=== PATIENT | female | born 2000 | race Caucasian/White ===

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

== ENCOUNTER → 2019-04-18 | Outpatient (CLI) | payer OTHER ==
[~2019-04-18] MED LIST changes: +ACET-704 PO; +IBUP-1390 PO; -IBUP200C PO
--- NOTE | 2019-04-18 11:12 | RAD ---
Left knee, 3 views, 04/18/2019: HISTORY: Knee pain No fracture or dislocation is identified. No significant arthritic change is seen. No significant joint effusion is evident. IMPRESSION: No significant left knee abnormality is detected Electronically signed by: Guerrero Logan MD (04/18/2019 11:09 AM) [facility]
== END | disposition home or self-care (01) ==
LOC: PMG 10:44
PROVIDERS: ATTEND Registered Nurse
DX: M25.562 Pain in left knee (principal)
CPT/HCPCS: 73562

== ENCOUNTER 2021-11-17 19:44 | Emergency (ER) | payer BC, OTHER ==
--- NOTE | 2021-11-17 20:40 | PHYS DOC ---
Past History Past Medical History: Asthma, Bipolar Past Surgical History: No Surgical History Smoking: Non-smoker Alcohol Use: None Drug Use: None General Adult EDM: Chief Complaint: Insomnia HPI: HPI: ". I have not slept more 2 hrs. a day the last three days.. " ... " Nothing is working I took 2 Ambien.... and I only fall asleep two hours.. " " I am Bipolar.. and I am getting manic.. " Pt. " Her father was Bipolar. and a rapid cycle.. " .." We are going to the [facility] service on Sunday... they are to get her in to try some different meds.. " Patient is a 21 year old female who presents with above hx and complaints of insomnia 72 hrs. Has taken her Bipolar meds as directed but minimal improvement for her manic phase. No recent travel. No specific ill contacts. Denies any u se of excessive caffeine or stimulants. No history of depression. No suicidal or homicidal ideation.. Patient is with her mother who is going to give transportation and make sure she gets to [facility] on Sunday. Review of Systems: Review of Systems: Constitutional: Denies fever or chills Eyes: Denies change in visual acuity HENT: Denies nasal congestion or sore throat Respiratory: Denies cough or shortness of breath Cardiovascular: Denies chest pain or edema GI: Denies abdominal pain, nausea, vomiting, bloody stools or diarrhea : Denies dysuria Musculoskeletal: Denies back pain or joint pain Integument: Denies rash Neurologic: Denies headache, focal weakness or sensory changes Endocrine: Denies polyuria or polydipsia Lymphatic: Denies swollen glands Psychiatric: Complains of insomnia and anxiety Family History: Family History: Father has bipolar disorder Current Medications: Current Meds: See nursing for home meds Allergies: Allergies: Allergies Coded Allergies Type Severity Reaction Last Updated Verified No Known Drug Allergies 03/19/14 No Physical Exam: PE: Constitutional: Moderate acute emotional distress, non-toxic appearance. [] HENT: Normocephalic, atraumatic, bilateral external ears normal, oropharynx moist, no oral exudates, nose normal. [] Eyes: PERRLA, EOMI, conjunctiva normal, no discharge. [] Neck: Normal range of motion, no tenderness, supple, no stridor. [] Cardiovascular:Heart rate regular rhythm, no murmur [] Lungs & Thorax: Bilateral breath sounds equal at apex auscultation [] Abdomen: Bowel sounds normal, soft, no tenderness, no masses, no pulsatile masses. [] Skin: Warm, dry, no erythema, no rash. Acne Back: No tenderness, no CVA tenderness. [] Extremities: No tenderness, no cyanosis, no clubbing, ROM intact, no edema. [] Neurologic: Alert and oriented X 3, normal motor function, normal sensory function, no focal deficits noted. [] Psychologic: Affect anxious judgement normal, mood normal. [] EKG: EKG: [] Radiology/Procedures: Radiology/Procedures: [] Heart Score: C/O Chest Pain: N/A Risk Factors: Risk Factors: DM, Current or recent (<one month) smoker, HTN, HLP, family history of CAD, obesity. Risk Scores: Score 0 - 3: 2.5% MACE over next 6 weeks - Discharge Home Score 4 - 6: 20.3% MACE over next 6 weeks - Admit for Clinical Observation Score 7 - 10: 72.7% MACE over next 6 weeks - Early Invasive Strategies Course & Med Decision Making: Course & Med Decision Making Pertinent Labs and Imaging studies reviewed. (See chart for details) Patient keep follow-up with [facility]. Impression: 1. Bipolar Disorder- Manic 2. Insomnia 3. Anxiety [] Dragon Disclaimer: Dragteodoro Disclaimer: This electronic medical record was generated, in whole or in part, using a voice recognition dictation system. Departure Departure: Referrals: MING IBRAHIM MD (PCP) Rashel Disclaimer This chart was dictated in whole or in part using Voice Recognition software in a busy, high-work load, and often noisy Emergency Department environment. It may contain unintended and wholly unrecognized errors or omissions. VIJAYA DELEON MD Nov 17, 2021 20:40
[2021-11-17 21:44] LABS: BARBITURATES NEG (NEG); BENZODIAZEPINES NEG (NEG); CANNABINOIDS NEG (NEG); COCAINE NEG (NEG); METHADONE NEG (NEG); OPIATES NEG (NEG); PHENCYCLIDINE NEG (NEG)
[2021-11-17 21:46] LABS: AMPHETAMINE/METHAMPHETAMINE NEG (NEG); BILIRUBIN,URINE NEG (NEG); CLARITY,URINE CLEAR; COLOR,URINE YELLOW; GLUCOSE,URINE NEG (NEG)
[2021-11-17 21:47] LABS: BACTERIA,URINE MOD /HPF (0-FEW); NITRITE,URINE NEG (NEG); SQUAMOUS EPITHELIAL CELL,UR MANY /LPF; UROBILINOGEN,URINE 0.2 mg/dL (0.2 mg/dL)
[2021-11-17] MEDS ORDERED: DOXEPIN HCL 25 MG CAPSULE PO ONE (22:15)
[2021-11-17] MEDS ORDERED: LORazepam 1 MG TABLET PO ONE (22:15)
== END 2021-11-17 22:15 | disposition home or self-care (01) ==
LOC: ER 19:44
DX: F31.9 Bipolar disorder, unspecified (principal); G47.00 Insomnia, unspecified; F41.9 Anxiety disorder, unspecified; J45.909 Unspecified asthma, uncomplicated
CPT/HCPCS: 36415; 80307; 81001; 81025; 87086; 99283

== ENCOUNTER 2022-01-22 10:02 | Emergency (ER) | payer BC ==
[~2022-01-22] VITALS: Ht 170.2 cm; Wt 119.7 kg
[2022-01-22 10:02] VITALS: BP 124/78
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
== END 2022-01-22 12:00 | disposition short-term general hospital (02) ==
LOC: ER 10:02 → EEVIPCON 10:02 → ER 12:00
DX: T76.21XA Adult sexual abuse, suspected, initial encounter (principal); J45.909 Unspecified asthma, uncomplicated; F31.9 Bipolar disorder, unspecified
CPT/HCPCS: 99285

== ENCOUNTER 2022-03-19 18:00 | Emergency (ER) | payer BC ==
[~2022-03-19] VITALS: Ht 170.2 cm; Wt 118.5 kg
[2022-03-19 18:57] VITALS: BP 138/77
--- NOTE | 2022-03-19 19:21 | EKG ---
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
[2022-03-19] MEDS ORDERED: CONTRAST GIVEN. MC PRN (19:45)
--- NOTE | 2022-03-19 19:45 | PHYS DOC ---
Past History Past Medical History: Asthma, Bipolar, Depression (EDGAR CHAIREZ APRN) Past Surgical History: No Surgical History (EDGAR CHAIREZ APRN) Smoking: Non-smoker Alcohol Use: None Drug Use: None (EDGAR CHAIREZ APRN) General Adult EDM: Chief Complaint: SYNCOPE HPI: HPI: Patient is a 21-year-old female who presents with syncopal episode at work. Patient states that she was not feeling well this morning. Patient arrived at work and states that she was feeling weird. 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 "Then I fell on the floor". Patient is unsure of how long she was on the floor before coworkers found her and called EMS. Patient is drowsy but oriented. Reporting numbness and tingling to the right side of her face, bilateral leg weakness, hand numbness. Patient states that she started control 2 months ago. No signs of trauma. Patient has a history of bipolar disorder, anxiety, depression. (EDGAR CHAIREZ APRN) Review of Systems: Review of Systems: ROS At least 10 ROS systems have been reviewed and are negative except as documented in the HPI. General: Negative except as outlined in HPI above. Skin: Negative except as outlined in HPI above. HEENT: Negative except as outlined in HPI above. Neck: Negative except as outlined in HPI above. Respiratory: Negative except as outlined in HPI above.. Cardiovascular: Negative except as outlined in HPI above. Abdomen: Negative except as outlined in HPI above. : Negative except as outlined in HPI above. Back/MSK: Negative except as outlined in HPI above. Neuro: Negative except as outlined in HPI above. Psych: Negative except as outlined in HPI above. (EDGAR CHAIREZ APRN) Current Medications: Current Meds: Current Medications Medications (Trade) Dose Ordered Sig/Cristi Start Time Stop Time Status Last Admin Dose Admin Iohexol (Omnipaque 350 Mg/ml) 100 ml 1X ONCE 03/19/22 19:30 03/19/22 19:31 UNV Sodium Chloride 1,000 ml @ 1,000 mls/hr 1X ONCE 03/19/22 19:00 03/19/22 19:59 (EDGAR CHAIREZ APRN) Allergies: Allergies: Allergies Coded Allergies Type Severity Reaction Last Updated Verified latex Allergy Intermediate 03/19/22 Yes (EDGAR CHAIREZ APRN) Physical Exam: PE: Constitutional: Well developed, well nourished, tearful HENT: bilateral external ears normal, oropharynx moist, no oral exudates, nose normal. [] Eyes: PERRLA, EOMI, conjunctiva normal, no discharge. [] Neck: Normal range of motion, no tenderness, supple, no stridor. [] Cardiovascular:Heart rate regular rhythm, no murmur [] Lungs & Thorax: Bilateral breath sounds clear to auscultation [] Abdomen: Bowel sounds normal, soft, no tenderness, no masses, no pulsatile masses. [] Skin: Warm, dry, no erythema, no rash. [] Back: No tenderness, no CVA tenderness. [] Extremities: No tenderness, no cyanosis, no clubbing, ROM intact, no edema. [] Neurologic: Oriented x3, drowsy and slow to respond, tingling to bilateral legs and bilateral fingertips Psychologic: Affect normal, judgement normal, anxious mood, tearful (EDGAR CHAIREZ APRN) Current Patient Data: Vital Signs: Vital Signs Date Time Temp Pulse Resp B/P (MAP) Pulse Ox O2 Delivery O2 Flow Rate FiO2 03/19/22 18:57 92 20 138/77 (97) 100 Room Air (EDGAR CHAIREZ APRN) EKG: EKG: [] (EDGAR CHAIREZ APRN) Radiology/Procedures: Radiology/Procedures: [] (EDGAR CHAIREZ APRN) Heart Score: C/O Chest Pain: No Risk Factors: Risk Factors: DM, Current or recent (<one month) smoker, HTN, HLP, family history of CAD, obesity. Risk Scores: Score 0 - 3: 2.5% MACE over next 6 weeks - Discharge Home Score 4 - 6: 20.3% MACE over next 6 weeks - Admit for Clinical Observation Score 7 - 10: 72.7% MACE over next 6 weeks - Early Invasive Strategies (EDGAR CHAIREZ APRN) Course & Med Decision Making: Course & Med Decision Making Pertinent Labs and Imaging studies reviewed. (See chart for details) [] 21-year-old female presents with syncopal episode at work. Patient was found on the ground by coworkers. Unknown downtime. Patient is oriented but drowsy and slow to respond. Patient is reporting some bilateral leg tingling that started today along with right-sided facial tingling. Patient reports she has been having some bilateral hand tingling for the last couple of weeks. Patient reports starting control 2 months ago. Denies all other new meds. Patient reports chest wall pain with taking a deep breath and with movement. Work-up in ER consisted of CBC, CMP, chest x-ray, urinalysis, drug screen, urine test, CTA of head. Patient states that her symptoms have improved. Patient does still have numbness and tingling to bilateral fingertips. All labs unremarkable. UDS is negative. CT head with and without was unable to exclude large vessel occlusion. I contacted neurology, for recommendation. After discussing the case he stated that patient would be able to be seen on an outpatient basis for further work-up such as MRI and EEG. Discussed all results with patient and mother. Advised patient to call Dr. Aquino Sunday to set up outpatient testing. Discussed return precautions with mom and patient. Patient states that she understands discharge instructions. (EDGAR CHAIREZ APRN) Dragon Disclaimer: Dragteodoro Disclaimer: This electronic medical record was generated, in whole or in part, using a voice recognition dictation system. (EDGAR CHAIREZ APRN) Departure Departure: Impression: Primary Impression: Syncopal episodes Qualified Codes: R55 - Syncope and collapse Additional Impression: Numbness and tingling in both hands Disposition: 01 HOME / SELF CARE / HOMELESS Condition: STABLE Referrals: MING IBRAHIM MD (PCP) Patient Instructions: Syncope, [id number] Additional Instructions: You are seen in the emergency room for syncopal episode. All of your labs were unremarkable. I spoke with neurology who stated you were a good candidate for an outpatient follow-up. Please call Dr. Aquino's office tomorrow to try and set up an appointment with neurology for further testing. Please return to emergency room if you have worsening symptoms or concerns such as altered mental status, uncontrolled vomiting, chest pain. Otherwise you can follow-up with PCP and neurology. [phone] EMERGENCY DEPARTMENT GENERAL DISCHARGE INSTRUCTIONS Thank you for coming to [facility] (ED) today and trusting us with you care. We trust that you had a positivie experience in our Emergency Department. If you wish to speak to the department management, you may call the director at [phone]. YOUR FOLLOW UP INSTRUCTIONS ARE FOLLOWS: 1. Do you have a private Doctor? If you do not have a private doctor, please ask for a resource list of physicians or clinics that may be able to assist you with follow up care. 2. The Emergency Physician has interpreted your x-rays. The X-Ray specialist will also review them. If there is a change in the findings, you will be notified in 48 hours when at all possible. 3. A lab test or culture has been done, your results will be reviewed and you will be notified if you need a change in treatment. ADDITIONAL INSTRUCTIONS AND INFORMATION: 1. Your care today has been supervised by a physician who is specially trained in emergency care. Many problems require more than one evaluation for a complete diagnosis and treatment. We recommend that you schedule your follow up appointment as recommended to ensure complete treatment of you illness or injury. If you are unable to obtain follow up care and continue to have a problem, or if your condition worsens, we recommend that you return to the ED. 2. We are not able to safely determine your condition over the phone nor are we able to give sound medical advice over the phone. For these safety reasons, if you call for medical advice we will ask you to come to the ED for further evaluation. 3. If you have any questions regarding these discharge instructions please call the ED at [phone]. SAFETY INFORMATION: In the interest of safety, wellness, and injury prevention; we encourage you to wear your sealbelt, if you smoke; quite smoking, and we encourage family to use a protective helmet for bicycling and other sporting events that present an increased risk for head injury. IF YOUR SYMPTOMS WORSEN OR NEW SYMPTOMS DEVELOP, OR YOU HAVE CONCERNS ABOUT YOUR CONDITION; OR IF YOUR CONDITION WORSENS WHILE YOU ARE WAITING FOR YOUR FOLLOW UP APPOINTMENT; EITHER CONTACT YOUR PRIMARY CARE DOCTOR, THE PHYSICIAN WHOSE NAME AND NUMBER YOU WERE GIVEN, OR RETURN TO THE ED IMMEDIATELY. Attending Signature Attending Signature I have participated in the care of this patient and I have reviewed and agree with all pertinent clinical information above including history, exam, and recommendations. (VIJAYA DELEON MD) Dragon Disclaimer This chart was dictated in whole or in part using Voice Recognition software in a busy, high-work load, and often noisy Emergency Department environment. It may contain unintended and wholly unrecognized errors or omissions. (VIJAYA DELEON MD) EDGAR CHAIREZ SAL[employer] Mar 19, 2022 19:44 VIJAYA DELEON MD Mar 20, 2022 20:31
[2022-03-19] MEDS: IOHEXOL 350 MG/ML 100 ML VIAL. IV ONE (19:50)
[2022-03-19 20:13] LABS: BASO # 0.1 x10^3/uL (0.0-0.2); BASO % 1 % (0-3); CALCIUM 9.3 mg/dL (8.5-10.1); CREATININE 0.7 mg/dL (0.6-1.0); EOS # 0.5 x10^3/uL (0.0-0.7); EOS % 4 % (0-3); GFR 103.7; HEMATOCRIT 35.5 % (36.0-47.0); HEMOGLOBIN 11.4 g/dL (12.0-15.5); LYMPH # 3.1 x10^3/uL (1.0-4.8); LYMPH % 23 % (24-48); MEAN CORPUSCULAR HEMOGLOBIN 23 pg (25-35); MEAN CORPUSCULAR HGB CONC 32 g/dL (31-37); MEAN CORPUSCULAR VOLUME 71 fL (79-100); MONO # 0.8 x10^3/uL (0.0-1.1); MONO % 6 % (0-9); NEUT # 9.1 x10^3uL (1.8-7.7); NEUT % 67 % (31-73); PLATELET COUNT 361 x10^3/uL (140-400); POTASSIUM 3.9 mmol/L (3.5-5.1); RED BLOOD COUNT 4.98 x10^6/uL (3.50-5.40); RED CELL DISTRIBUTION WIDTH 15.7 % (11.5-14.5); WHITE BLOOD COUNT 13.6 x10^3/uL (4.0-11.0)
[2022-03-19 20:16] LABS: BACTERIA,URINE 0 /HPF (0-FEW); CLARITY,URINE CLEAR; COLOR,URINE YELLOW; GLUCOSE,URINE NEG (NEG); NITRITE,URINE NEG (NEG); RBC,URINE 0 /HPF (0-2); SQUAMOUS EPITHELIAL CELL,UR OCC /LPF; UROBILINOGEN,URINE 0.2 mg/dL (0.2 mg/dL); WBC,URINE 0 /HPF (0-4)
[2022-03-19 20:18] LABS: BARBITURATES NEG (NEG); BENZODIAZEPINES NEG (NEG); CANNABINOIDS NEG (NEG); COCAINE NEG (NEG); METHADONE NEG (NEG); PHENCYCLIDINE NEG (NEG)
[2022-03-19] MEDS: IV NORMAL SALINE 1,000ML 1,000 ML IV ONE (20:18)
[2022-03-19 20:19] LABS: ALBUMIN 3.6 g/dL (3.4-5.0); AMPHETAMINE/METHAMPHETAMINE NEG (NEG); TOTAL BILIRUBIN 0.3 mg/dL (0.2-1.0); TOTAL PROTEIN 7.1 g/dL (6.4-8.2)
--- NOTE | 2022-03-19 20:44 | RAD ---
Exam Date: 03/19/2022 7:35 PM CTA HEAD Indication: Reason: confusion, weakness / Spl. Instructions: / History: . TECHNIQUE: CT angiogram of the head was performed before and following the administration of nonionic intravenous contrast. Three-dimensional maximal intensity projection reformatted images and source i mages were created on an independent workstation and reviewed to assist with clinical management. O ne or more of the following dose reduction techniques were utilized: *Automated exposure control (AEC) *Adjustment of mA and/or kV according to patient size *Use of iterative reconstruction technique *CT scan done according to ALARA, or ALARA/IMAGE GENTLY FINDINGS: There is suboptimal opacification of the arterial structures due to bolus timing. As a result, the p atency of the major intracranial arteries cannot be adequately assessed on this exam. No definite ab normal contrast enhancement is seen. The ventricles and sulci are normal for the patient's stated age. There is no evidence of acute int racranial hemorrhage, extra-axial collection, mass effect, midline shift, or acute territorial infarc t. No lesion of the skull base or the calvarium is seen. The visualized paranasal sinuses, mastoid ai r cells and orbits are normal in appearance. IMPRESSION: Large vessel occlusion cannot be excluded on this exam due to bolus timing. No abnormal contrast enh ancement is seen. No evidence for acute intracranial abnormality. Electronically signed by: Steve Alonzo MD (03/19/2022 8:41 PM) [id number]
--- NOTE | 2022-03-19 23:07 | RAD ---
Study: XR CHEST 1V Indication: Chest wall pain. Comparison: 03/19/2014 Findings: The cardiomediastinal silhouette and john are within normal limits. No localized airspace opacity, pl eural effusion or pneumothorax. Impression: No acute radiographic abnormality of the chest. Electronically signed by: CURTIS SANDOVAL MD (03/19/2022 11:04 PM) [facility]
== END 2022-03-19 22:58 | disposition home or self-care (01) ==
LOC: ER 18:00
DX: R55 Syncope and collapse (principal); R20.0 Anesthesia of skin; J45.909 Unspecified asthma, uncomplicated; Z91.040 Latex allergy status
CPT/HCPCS: 36415; 70470; 71045; 80053; 80307; 81001; 81025; 84484; 85025; 85379; 86140; 93005; 96360; 99285; J7030; Q9967